=== PATIENT | female | born 1970 | race Caucasian/White ===

== ENCOUNTER → 2016-07-07 | Outpatient (CLI) | payer MEDICARE, MEDICAID ==
[2016-02-11 12:38] VITALS: BP 148/93
[~2016-07-07] MED LIST: ABILIFY30 MG; ADDERALL 10 MG10 MG PO; BUPROPRION; CLEOCIN HCL300 MG PO; CLINDAMYCIN HY300 MG PO; ESCITALOPRAM; FENTANYL 25 MCG TP; HYDROCODONE/APAP; LAMICTAL200 M1 PO; LATUDA20 MG PO; LEVSIN-SL0.125 MG SL; LEXAPRO20 M1 PO; NEXIUM20 MG PO; NORCO 325 MG-51 TA1 PO; NORCO 7.5-3251 EACH PO; PREMARIN PO; PREMPRO 0.45 MG1 TAB PO; RISPERDAL 1M1 MG/TAB PO; ROXICODONE 55 MG/TAB PO; SARNA 0.5%-0.5222 ML TP; TRAMADOL 50 MG TAB PO; ULTRAM 50MG TAB50 MG PO; ULTRAM50 M1 PO; ULTRAM50 MG PO; XANAX0.5 MG PO; ZOFRAN8 MG PO; ZOVIRAX200 M1 PO
== END ==
LOC: PT 15:26 → EDSTATUS 16:10

== ENCOUNTER 2016-07-14 15:53 | Emergency (ER) | payer MEDICARE, MEDICAID ==
[~2016-07-14] VITALS: Ht 170.2 cm; Wt 115.0 kg
[~2016-07-14 15:53] MED LIST changes: -CLEOCIN HCL300 MG PO; -NORCO 7.5-3251 EACH PO; -PREMPRO 0.45 MG1 TAB PO; -RISPERDAL 1M1 MG/TAB PO; -ROXICODONE 55 MG/TAB PO; -SARNA 0.5%-0.5222 ML TP; -TRAMADOL 50 MG TAB PO
[2016-07-14] MEDS ORDERED: PREMPRO 0.45 MG1 TAB PO (16:08)
[2016-07-14] MEDS ORDERED: RISPERDAL 1M1 MG/TAB PO (16:08)
[2016-07-14] MEDS ORDERED: SARNA 0.5%-0.5222 ML TP (16:09)
[2016-07-14] MEDS ORDERED: ROXICODONE 55 MG/TAB PO (16:09)
[2016-07-14] MEDS ORDERED: NORCO 7.5-3251 EACH PO (16:09)
[2016-07-14] MEDS ORDERED: CLEOCIN HCL300 MG PO (21:38)
[2016-07-14 21:44] VITALS: BP 145/84
== END 2016-07-14 21:44 | disposition home or self-care (01) ==
LOC: ED 15:53
DX: L03.115 Cellulitis of right lower limb (principal); T81.4XXA Infection following a procedure, initial encounter; Z96.651 Presence of right artificial knee joint; B99.9 Unspecified infectious disease; F31.9 Bipolar disorder, unspecified; F41.9 Anxiety disorder, unspecified; F98.8 Other specified behavioral and emotional disorders with onset usually occurring in childhood and adolescence
CPT/HCPCS: J1885

== ENCOUNTER 2016-07-15 11:01 | Emergency (ER) | payer MEDICARE, MEDICAID ==
[~2016-07-15] VITALS: Ht 170.2 cm; Wt 115.0 kg
[~2016-07-15 11:01] MED LIST changes: +CLEOCIN HCL300 MG PO; +NORCO 7.5-3251 EACH PO; +PREMPRO 0.45 MG1 TAB PO; +RISPERDAL 1M1 MG/TAB PO; +ROXICODONE 55 MG/TAB PO; +SARNA 0.5%-0.5222 ML TP
[2016-07-15 13:13] VITALS: BP 139/78
== END 2016-07-15 13:17 | disposition home or self-care (01) ==
LOC: ED 11:01
DX: L03.115 Cellulitis of right lower limb (principal); M25.561 Pain in right knee; Z96.651 Presence of right artificial knee joint; Z98.890 Other specified postprocedural states; R16.0 Hepatomegaly, not elsewhere classified; K76.0 Fatty (change of) liver, not elsewhere classified; F31.9 Bipolar disorder, unspecified; F41.9 Anxiety disorder, unspecified; F98.8 Other specified behavioral and emotional disorders with onset usually occurring in childhood and adolescence
CPT/HCPCS: Q0177; Q9967

== ENCOUNTER 2016-08-23 20:22 | Emergency (ER) | payer MEDICARE, MEDICAID ==
[~2016-08-23] VITALS: Ht 170.2 cm; Wt 115.0 kg
[2016-08-23] MEDS ORDERED: TRAMADOL 50 MG TAB PO (22:19)
[2016-08-23 22:39] VITALS: BP 148/74
== END 2016-08-23 22:41 | disposition home or self-care (01) ==
LOC: ED 20:22
DX: S63.501A Unspecified sprain of right wrist, initial encounter (principal); S93.492A Sprain of other ligament of left ankle, initial encounter; S80.01XA Contusion of right knee, initial encounter; Z96.651 Presence of right artificial knee joint; W01.10XA Fall on same level from slipping, tripping and stumbling with subsequent striking against unspecified object, initial encounter; F90.9 Attention-deficit hyperactivity disorder, unspecified type; F31.9 Bipolar disorder, unspecified

== ENCOUNTER → 2016-11-20 | Outpatient (CLI) | payer MEDICARE, MEDICAID ==
[~2016-11-20] MED LIST changes: +TRAMADOL 50 MG TAB PO
== END ==
LOC: LAB 11:46
DX: M25.561 Pain in right knee (principal); Z96.651 Presence of right artificial knee joint

== ENCOUNTER 2017-01-25 13:30 | Outpatient (RCR) | payer MEDICARE, MEDICAID | END 2017-01-25 14:00 | disposition home or self-care (01) | LOC: PT | DX: Z47.1 Aftercare following joint replacement surgery (principal); Z96.651 Presence of right artificial knee joint; M25.561 Pain in right knee | CPT/HCPCS: G8978-GP; G8979-GP ==

== ENCOUNTER 2017-03-05 21:05 | Emergency (ER) | payer MEDICARE, MEDICAID ==
[~2017-03-05] VITALS: Ht 167.6 cm; Wt 118.2 kg
[2017-03-05 22:10] LABS: EOS # 0.2 (0.04-0.40); EOS % 1.9 % (1.0-5.0); HEMATOCRIT 38.3 % (37.0-47.0); HEMOGLOBIN 12.5 g/dL (12.5-16.0); MEAN CELL VOLUME 79 fl (78-100); MEAN CORPUSCULAR HEMOGLOBIN 26 pg (27-31); MEAN CORPUSCULAR HGB CONC 33 g/dL (33-37); MEAN PLATELET VOLUME 8.5 fl (7.4-10.4); MONO # 0.6 (0.20-0.80); NEU # 6.7 (1.40-6.50); PLATELET COUNT 394 K/mm3 (130-400); RED BLOOD COUNT 4.88 M/mm3 (4.10-5.30); RED CELL DISTRIBUTION WIDTH 15.5 % (11.5-14.5); WHITE BLOOD COUNT 10.6 K/mm3 (4.8-10.8)
[2017-03-05 22:24] LABS: BUN/CREATININE RATIO 12.6 (6.0-26.0); CALCIUM 9.2 mg/dL (8.4-10.2); POTASSIUM 3.9 mmol/L (3.6-5.0); TOTAL BILIRUBIN 0.3 mg/dL (0.2-1.3); TOTAL PROTEIN 7.7 g/dL (6.3-8.2)
[2017-03-06 00:41] VITALS: BP 139/80
== END 2017-03-06 00:41 | disposition home or self-care (01) ==
LOC: ED 21:05
PROVIDERS: Family Medicine
DX: K21.9 Gastro-esophageal reflux disease without esophagitis (principal); F41.9 Anxiety disorder, unspecified; R73.9 Hyperglycemia, unspecified; R06.4 Hyperventilation; F31.9 Bipolar disorder, unspecified; F98.8 Other specified behavioral and emotional disorders with onset usually occurring in childhood and adolescence; Z87.891 Personal history of nicotine dependence

== ENCOUNTER → 2017-06-05 | Outpatient (CLI) | payer MEDICARE, MEDICAID ==
[2017-06-05 10:12] LABS: ALBUMIN 3.8 g/dL (3.5-5.0); BUN/CREATININE RATIO 19.7 (6.0-26.0); CALCIUM 9.1 mg/dL (8.4-10.2); POTASSIUM 4.4 mmol/L (3.6-5.0); TOTAL BILIRUBIN 0.2 mg/dL (0.2-1.3); TOTAL PROTEIN 7.4 g/dL (6.3-8.2)
== END ==
LOC: LAB 09:44
PROVIDERS: Psychiatry & Neurology Psychiatry
DX: Z79.899 Other long term (current) drug therapy (principal); F31.81 Bipolar II disorder

== ENCOUNTER → 2017-06-30 | Outpatient (CLI) | payer MEDICARE, MEDICAID ==
[2017-06-30 17:12] LABS: EOS # 0.3 (0.04-0.40); EOS % 3.5 % (1.0-5.0); HEMATOCRIT 39.4 % (37.0-47.0); HEMOGLOBIN 12.6 g/dL (12.5-16.0); LYMPH# 2.9 (1.50-4.00); MEAN CELL VOLUME 79 fl (78-100); MEAN CORPUSCULAR HEMOGLOBIN 25 pg (27-31); MEAN CORPUSCULAR HGB CONC 32 g/dL (33-37); MEAN PLATELET VOLUME 9.2 fl (7.4-10.4); MONO # 0.5 (0.20-0.80); NEU # 5.9 (1.40-6.50); PLATELET COUNT 377 K/mm3 (130-400); RED BLOOD COUNT 4.98 M/mm3 (4.10-5.30); RED CELL DISTRIBUTION WIDTH 16.4 % (11.5-14.5); WHITE BLOOD COUNT 9.7 K/mm3 (4.8-10.8)
[2017-06-30 18:15] LABS: ALBUMIN 3.9 g/dL (3.5-5.0); BUN/CREATININE RATIO 21.1 (6.0-26.0); CALCIUM 9.3 mg/dL (8.4-10.2); POTASSIUM 4.2 mmol/L (3.6-5.0); TOTAL BILIRUBIN 0.2 mg/dL (0.2-1.3); TOTAL PROTEIN 7.4 g/dL (6.3-8.2)
[2017-06-30 18:44] LABS: PROTHROMBIN TIME 9.8 SECONDS (9.0-12.0)
[2017-06-30 19:41] LABS: URINE APPEARANCE CLEAR; URINE COLOR YELLOW
[2017-06-30 19:42] LABS: URINE BILIRUBIN NEGATIVE (NEGATIVE); URINE BLOOD TRACE (NEGATIVE); URINE GLUCOSE NEGATIVE (NEGATIVE); URINE KETONE NEGATIVE (NEGATIVE); URINE LEUKOCYTE ESTERASE NEGATIVE (NEGATIVE); URINE NITRATE NEGATIVE (NEGATIVE); URINE PROTEIN(semi-quant) TRACE mg/dL (NEGATIVE); URINE UROBILINOGEN NORMAL (NORMAL); URINE WBC 0-1 /hpf (0-3)
== END ==
LOC: LAB 16:47
PROVIDERS: Orthopaedic Surgery
DX: Z01.812 Encounter for preprocedural laboratory examination (principal); Z79.01 Long term (current) use of anticoagulants

== ENCOUNTER → 2021-06-16 | Outpatient (CLI) | payer MEDICARE, MEDICAID | LOC: RAD 11:00 | DX: M54.50 Low back pain, unspecified (principal); M54.6 Pain in thoracic spine ==